=== PATIENT | female | born 2000 | race Hispanic/Latino ===

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

== ENCOUNTER 2019-02-19 20:23 | Emergency (ER) | payer OTHER | END 2019-02-19 21:00 | disposition home or self-care (01) | LOC: SCSER 20:23 | DX: J06.9 Acute upper respiratory infection, unspecified (principal); G43.909 Migraine, unspecified, not intractable, without status migrainosus | CPT/HCPCS: 99281 ==

== ENCOUNTER 2019-10-26 09:31 | Emergency (ER) | payer OTHER ==
[2019-10-26 10:38] LABS: Bacteria/HPF 1+ HPF (None Seen); Bilirubin Negative (Negative); Blood, Urine 3+ (Negative); Clarity Turbid (Clear); Glucose, Urine (Dipstick) Normal (Negative); Ketone, Urine Negative (Negative); Leukocyte 250 Leu/uL (Negative); Nitrite Negative (Negative); Protein, Urine (Dipstick) 50 mg/dL (Neg-Trace); RBC/HPF 0-3 HPF (0-3); Specific Gravity, Urine 1.027 (1.002-1.036); Urobilinogen Normal mg/dL (Less than 2)
--- NOTE | 2019-10-26 11:08 | ULT ---
US Pelvic Transvag W Doppler History: Pelvic pain. Positive home test Comparison: None. Findings: Real-time grayscale, color and spectral analysis of the pelvis was performed transabdominal and transvaginal approach. Uterus is normal. Endometrial thickness is normal at 8 mm. No intrauterine . Small to moderate free fluid in the pelvis. Adequate vascular flow to both ovaries. Simple cyst in left ovary. Impression: 1. Normal examination of the pelvis aside from moderate free fluid is likely physiologic. 2. If the patient is truly , this is a of unknown location. Recommend correlation w ith hCG. Close follow-up hCG and ultrasound recommended if hCG is positive.
== END 2019-10-26 12:44 | disposition home or self-care (01) ==
LOC: ERS 09:31
DX: O20.9 Hemorrhage in early pregnancy, unspecified (principal); O99.341 Other mental disorders complicating pregnancy, first trimester; F41.9 Anxiety disorder, unspecified; Z3A.01 Less than 8 weeks gestation of pregnancy
CPT/HCPCS: 36415; 76856; 81003; 81015; 84702; 87086

== ENCOUNTER 2024-01-08 00:04 | Emergency (ER) | payer OTHER ==
[2024-01-08 00:37] LABS: Bilirubin Negative (Negative); Blood, Urine 1+ (Negative); CAUTI Indications for Culture Pelvic or flank pain; Clarity Clear (Clear); Glucose, Urine (Dipstick) Normal (Negative); Ketone, Urine Negative (Negative); Leukocyte 500 Leu/uL (Negative); Nitrite Negative (Negative); Protein, Urine (Dipstick) 20 mg/dL (Neg-Trace); RBC/HPF 21-50 HPF (0-3); Specific Gravity, Urine 1.015 (1.002-1.036); Squamous Epithelial 0-3 HPF (0-3); Urobilinogen Normal mg/dL (Less than 2); WBC/HPF Greater than 50 HPF (0-3)
[2024-01-08 00:47] LABS: Bacteria/HPF 1+ HPF (None Seen)
[2024-01-08 00:48] LABS: Urine Culture Reflex Yes Yes
[2024-01-08] MEDS ORDERED: Ondansetron ODT 4 MG TAB ONE (01:29)
== END 2024-01-08 01:32 | disposition home or self-care (01) ==
LOC: ERS 00:04
DX: N39.0 Urinary tract infection, site not specified (principal)
CPT/HCPCS: 81001; 87077; 87086; 87186; 99283; Q0162